=== PATIENT | male | born 1995 | race Two or more races ===

== ENCOUNTER 2016-09-20 09:37 | Emergency (ER) | payer SELFPAY ==
--- NOTE | 2016-09-20 10:08 | RAD ---
History: Cough since last Sunday. Hemoptysis today. Comparison: None. Technique: 2 views Findings: The soft tissue and bony structures are unremarkable. The heart size is appropriate. No infiltrate, effusion or pneumothorax is observed. The hilar and mediastinal structures are normal. Impression: 1. A negative 2 view chest
== END 2016-09-20 10:42 | disposition home or self-care (01) ==
LOC: ED 09:37
DX: J03.90 Acute tonsillitis, unspecified (principal)